=== PATIENT | male | born 1945 | race Caucasian/White ===

== ENCOUNTER 2018-05-26 10:00 | Observation (INO) | payer MEDICARE, OTHER ==
[2018-05-26] VITALS (32 sets, daily range): BP systolic 140–162; BP diastolic 85–101; PULSE 68–72; TEMP 97.4–97.8; O2SAT 86–97
== END 2018-05-26 12:30 | disposition critical access hospital (66) ==
LOC: SURG 10:00 → EDBD 10:00 → SURG 10:00 → ICU 10:00
DX: I21.4 Non-ST elevation (NSTEMI) myocardial infarction (principal); I25.10 Atherosclerotic heart disease of native coronary artery without angina pectoris; F17.210 Nicotine dependence, cigarettes, uncomplicated; I10 Essential (primary) hypertension; E78.5 Hyperlipidemia, unspecified; Z82.49 Family history of ischemic heart disease and other diseases of the circulatory system
CPT/HCPCS: 99223-AI; C1769; C1887; G0379; J1644; J2250; J3010